=== PATIENT | female | born 1965 | race African-American/Black ===

== ENCOUNTER 2017-08-29 09:49 | Outpatient (CLI) | payer OTHER ==
--- NOTE | 2017-08-29 11:03 | XRay Report ---
RIGHT SHOULDER RADIOGRAPHS INDICATION: Pain. COMPARISON: None similar. FINDINGS: Frontal and Y views of the right shoulder, 3 projections demonstrate normal humeral head contour, well positioned against the glenoid. Normal acromioclavicular joint. Preserved scapular contour. Normal visualized soft tissues, right ribs and lung. CONCLUSION: No acute right shoulder radiographic abnormality, as described. Thank you for the opportunity to participate in this patient's care.
--- NOTE | 2017-08-29 11:04 | XRay Report ---
LEFT KNEE RADIOGRAPHS INDICATION: Pain in both legs. COMPARISON: None similar. FINDINGS: AP and lateral left knee radiographs demonstrate intact bony articulation and appearance. Normal soft tissues without evidence of suprapatellar effusion. CONCLUSION: Normal left knee radiographs. Thank you for the opportunity to participate in this patient's care.
== END 2017-08-29 09:50 | disposition home or self-care (01) ==
LOC: XRAY 09:49
PROVIDERS: ATTEND Internal Medicine
DX: M25.511 Pain in right shoulder (principal); M25.562 Pain in left knee; M79.604 Pain in right leg; M79.605 Pain in left leg; F32.9 Major depressive disorder, single episode, unspecified; N28.9 Disorder of kidney and ureter, unspecified; R26.2 Difficulty in walking, not elsewhere classified